=== PATIENT | female | born 1960 | race Two or more races ===

== ENCOUNTER 2024-11-28 10:36 | Inpatient (IN) | payer MEDICAID ==
[2024-11-28] MEDS ORDERED: ATOR10TA PO (11:28)
[2024-11-28] MEDS ORDERED: ALBU90AE IH (11:28)
[2024-11-28] MEDS ORDERED: BUDE10.26 IH (11:28)
[2024-11-28] MEDS ORDERED: RISP-31 PO (11:28)
[2024-11-28] MEDS ORDERED: IPRA3AMP24 NEB (11:28)
[2024-11-28] MEDS ORDERED: PRAM0.259 PO (11:28)
[2024-11-28] MEDS ORDERED: FURO20TA5 PO (11:28)
[2024-11-28] MEDS ORDERED: SEMA14TA2 PO (11:28)
[2024-11-28] MEDS ORDERED: RIVA20TA PO (11:28)
[2024-11-28] MEDS ORDERED: BENZ-247 PO (11:28)
[2024-11-28] MEDS ORDERED: RISP3TAB77 PO (11:28)
[2024-11-28] MEDS ORDERED: DIVA-85 PO (11:28)
[2024-11-28 11:30] VITALS: BP 122/75; PULSE 88; RESP 18; TEMP 97.8; O2SAT 97
[2024-11-28 12:36] LABS: GLUCOMETER DEV NAME(LOC) POC.BV; POC SARS-COV2 AG, FIA NEGATIVE (NEGATIVE)
[2024-11-29 08:26] LABS: BASOPHILS % (AUTO) 0.5 % (0.0-2.0); EOSINOPHILS % (AUTO) 0.5 % (1.0-6.0); HEMATOCRIT 38.5 % (36-46); HEMOGLOBIN 12.8 g/dL (12.0-16.0); LYMPHOCYTES # (AUTO) 2.3 K/uL (1.0-4.8); LYMPHOCYTES % (AUTO) 27.6 % (22.0-44.0); MEAN CORPUSCULAR HEMOGLOBIN 25.5 pg (26.0-34.0); MEAN CORPUSCULAR HGB CONC 33.4 G/dL (31.0-37.0); MEAN CORPUSCULAR VOLUME 76 fL (80-100); MONOCYTES # (AUTO) 0.7 K/uL (0.1-1.0); NEUTROPHILS # (AUTO) 5.2 K/uL (1.8-7.7); NEUTROPHILS % (AUTO) 63.4 % (40.0-70.0); PLATELET COUNT (AUTO) 212 K/uL (150-450); RED BLOOD CELL COUNT(AUTO) 5.04 MIL/uL (4.00-5.20); RED CELL DISTRIBUTION WIDTH 16.4 % (11.5-14.5); WHITE BLOOD COUNT (AUTO) 8.2 K/uL (4.5-11.0)
[2024-11-29 08:43] LABS: HEMOGLOBIN A1C 5.8 % (3.8-5.6)
[2024-11-29 09:04] VITALS: BP 132/81; PULSE 89; RESP 18; TEMP 98.2; O2SAT 95
[2024-11-29] MEDS: LORazepam 2 MG TABLET PO PRN (09:16)
[2024-11-29 09:21] LABS: RBC MORPHOLOGY COMMENT ABNORMAL RBC MORPH
[2024-11-29 09:26] LABS: ALANINE AMINOTRANSFERASE 18 U/L (12-78); ALBUMIN 3.4 g/dL (3.4-5.0); ALKALINE PHOSPHATASE 91 U/L (46-116); ANION GAP 7 mmol/L (8-16); ASPARTATE AMINOTRANSFERASE 25 U/L (15-37); BILIRUBIN,TOTAL 0.5 mg/dL (0.1-1.0); CALCIUM, TOTAL 9.4 mg/dL (8.8-10.5); CARBON DIOXIDE 32 mmol/L (22-29); CHLORIDE 102 mmol/L (98-107); CHOL/HDL RATIO 2.4 (3.9-5.7); CHOLESTEROL 150 mg/dL (131-200); FREE T4 (FREE THYROXINE) 1.34 ng/dL (0.76-1.46); GLOMERULAR FILTR. RATE CALC > 60 mL/min (>60); GLUCOSE,RANDOM 128 mg/dL (70-110); HDL CHOLESTEROL 62 mg/dL (40-60); LDL CHOL (CALC.) 70 mg/dL (0-130); POTASSIUM 3.8 mmol/L (3.5-5.1); SODIUM SERUM 141 mmol/L (136-145); T4 (THYROXINE) 12.9 mcg/dL (4.7-13.3); THYROID STIMULATING HORMONE 2.23 uIU/mL (0.36-3.74); TOTAL PROTEIN, SERUM 7.5 g/dL (6.4-8.2); TRIGLYCERIDES 91 mg/dL (15-150); UREA NITROGEN, BLOOD 11 mg/dL (7-18)
[2024-11-29] MEDS: HALOPERIDOL 5 MG TABLET PO PRN (09:28)
[2024-11-29] MEDS: RisperiDONE 1 MG TABLET PO SCH (17:18)
[2024-11-29] MEDS: DIVALPROEX SODIUM 500 MG DR TABLET PO SCH (17:18)
[2024-11-29] MEDS ORDERED: ACETAMINOPHEN 325 MG TABLET PO PRN (19:30)
[2024-11-29] MEDS ORDERED: OMEPRAZOLE 20 MG CAPSULE PO PRN (19:30)
[2024-11-29] MEDS ORDERED: PETROLATUM,WHITE 28 GM JELLY TP PRN (19:30)
[2024-11-29] MEDS ORDERED: ONDANSETRON 4 MG TABLET PO PRN (19:30)
[2024-11-29] MEDS ORDERED: DOCUSATE SODIUM 100 MG CAPSULE PO PRN (19:30)
[2024-11-29] MEDS ORDERED: MAG HYDROX/ALUMINUM HYD/SIMETH ES 30 ML SUSPENSION UDCUP PO PRN (19:30)
[2024-11-29] MEDS ORDERED: BACITRACIN 28 GM OINTMENT TP PRN (19:30)
[2024-11-29] MEDS ORDERED: ALBUTEROL SULFATE HFA 90 MCG/PUFF 8 GM INHALER IH PRN (19:30)
[2024-11-29] MEDS ORDERED: CloNIDine HCL 0.1 MG TABLET PO PRN (19:30)
[2024-11-29 20:19] VITALS: RESP 18
[2024-11-29] MEDS: ATORVASTATIN CALCIUM 10 MG TABLET PO SCH (20:58)
[2024-11-29] MEDS: PRAMIPEXOLE DI-HCL 0.25 MG TABLET PO SCH (20:58)
[2024-11-29] MEDS: ZOLPIDEM TARTRATE 10 MG TABLET PO PRN (22:00)
[2024-11-30] MEDS ORDERED: INFLUENZA VIRUS VACCINE TVS (6MO+) 2024-25/PF 45 MCG/0.5 ML SYRINGE IM. ONE (06:00)
[2024-11-30] MEDS: BUDESONIDE/FORMOTEROL FUMARATE 160-4.5 MCG/PUFF 10.2 GM INHALER IH SCH (09:00)
[2024-11-30] MEDS: FUROSEMIDE 20 MG TABLET PO SCH (09:42)
[2024-11-30 16:02] VITALS: BP 125/88; PULSE 99; RESP 19; TEMP 98.8; O2SAT 99
[2024-11-30] MEDS: RIVAROXABAN 20 MG TABLET PO SCH (17:30)
[2024-11-30 21:17] VITALS: BP 143/75; PULSE 86; RESP 18; TEMP 98.1
[2024-12-01 10:07] VITALS: BP 132/60; PULSE 77; RESP 17; TEMP 98.2
[2024-12-01] MEDS: BENZOCAINE/MENTHOL LOZENGE PO PRN (17:50)
[2024-12-01 21:30] VITALS: RESP 18
[2024-12-02 09:09] VITALS: BP 157/97; PULSE 74; RESP 18; TEMP 97.5; O2SAT 96
[2024-12-02 09:37] VITALS: BP 157/97; PULSE 74; RESP 18; TEMP 97.5; O2SAT 96
[2024-12-02] MEDS: IBUPROFEN 600 MG TABLET PO PRN (09:37)
[2024-12-02 10:37] VITALS: BP 132/77; PULSE 71; RESP 17; TEMP 98
[2024-12-02 21:12] VITALS: BP 149/70; PULSE 97; RESP 18; TEMP 97.8; O2SAT 97
[2024-12-03 09:52] VITALS: BP 164/84; PULSE 96; RESP 18; TEMP 98.2; O2SAT 96
[2024-12-03 21:02] VITALS: BP 149/74; PULSE 103; RESP 18; TEMP 97.7; O2SAT 96
[2024-12-04 10:33] VITALS: BP 144/87; PULSE 82; RESP 18; TEMP 97.6; O2SAT 95
[2024-12-04] MEDS: CHLORHEXIDINE GLUCONATE 0.12% 15 ML UDCUP ORAL RINSE PO SCH (13:02)
[2024-12-04] MEDS: BENZOCAINE 10% 7 GM GEL TP PRN (13:07)
[2024-12-04 20:51] VITALS: BP 141/77; PULSE 97; RESP 18; TEMP 98.7; O2SAT 95
[2024-12-05 01:32] LABS: APPEARANCE,URINE CLEAR (CLEAR); BILIRUBIN,URINE NEGATIVE (NEGATIVE); COLOR,URINE COLORLESS (YELLOW); GLUCOSE, URINE (UA) NEGATIVE (NEGATIVE); KETONES,URINE NEGATIVE (NEGATIVE); LEUKOCYTE ESTERASE ,URINE NEGATIVE (NEGATIVE); NITRATE,URINE NEGATIVE (NEGATIVE); OCCULT BLOOD,URINE NEGATIVE (NEGATIVE); PROTEIN,URINE NEGATIVE (NEGATIVE); UROBILINOGEN,URINE <=1.0 mg/dL (<=1.0)
[2024-12-05 01:42] LABS: ALCOHOL, URINE DRUG SCREEN NEGATIVE (NEGATIVE); AMPHET/METH SCREEN,URINE NEGATIVE (NEGATIVE); BARBITURATE SCREEN, URINE NEGATIVE (NEGATIVE); BENZODIAZEPINES SCREEN,URINE NEGATIVE (NEGATIVE); CANNABINOID SCREEN,URINE NEGATIVE (NEGATIVE); COCAINE SCREEN,URINE NEGATIVE (NEGATIVE); METHADONE SCREEN, URINE NEGATIVE (NEGATIVE); OPIATE SCREEN,URINE NEGATIVE (NEGATIVE); PHENCYCLIDINE SCREEN,URINE NEGATIVE (NEGATIVE)
[2024-12-05 10:22] VITALS: BP 112/63; PULSE 86; RESP 18; TEMP 97.8; O2SAT 98
[2024-12-05 20:25] VITALS: BP 120/71; PULSE 98; RESP 18; TEMP 97.8; O2SAT 98
[2024-12-06 09:06] VITALS: BP 166/94; PULSE 98; RESP 17; TEMP 98.5; O2SAT 95
[2024-12-06 23:17] VITALS: RESP 18
[2024-12-07 10:59] VITALS: BP 133/84; PULSE 98; RESP 18; TEMP 97.9; O2SAT 96
[2024-12-07 21:58] VITALS: RESP 18
[2024-12-08 12:05] VITALS: BP 137/79; PULSE 93; RESP 18; TEMP 98.9; O2SAT 96
[2024-12-08 21:02] VITALS: BP 140/96; PULSE 96; RESP 18; TEMP 97; O2SAT 96
[2024-12-09 08:30] VITALS: BP 170/110; PULSE 97; RESP 18; TEMP 98.1; O2SAT 97
[2024-12-09 10:40] VITALS: BP 113/60; PULSE 94; RESP 17
[2024-12-09 21:15] VITALS: BP 113/61; PULSE 112; RESP 18; TEMP 97.4; O2SAT 97
[2024-12-10 08:45] VITALS: BP 157/79; PULSE 96; RESP 18; TEMP 97.5; O2SAT 98
[2024-12-10 21:50] VITALS: BP 123/61; PULSE 95; RESP 18; TEMP 98.5; O2SAT 95
[2024-12-11 10:15] VITALS: BP 116/57; PULSE 85; RESP 18; TEMP 97.7; O2SAT 98
[2024-12-11 23:00] VITALS: RESP 18
[2024-12-12 08:10] VITALS: BP 107/66; PULSE 79; RESP 18; TEMP 98; O2SAT 96
[2024-12-12] MEDS: MAGNESIUM HYDROXIDE SUSPENSION 30 ML UDCUP PO PRN (11:32)
[2024-12-12 23:31] VITALS: RESP 18
[2024-12-13] MEDS: LOPERAMIDE HCL 2 MG CAPSULE PO PRN (00:48)
[2024-12-13 08:53] VITALS: BP 118/58; PULSE 96; RESP 18; TEMP 97.8; O2SAT 98
[2024-12-14 07:06] LABS: HIV 1-2 SCREEN 4TH GEN W/RFLX Non Reactive (Non Reactive)
== END 2024-12-13 19:12 | disposition home or self-care (01) | DRG 750 ==
LOC: 3EC 22:14
PROVIDERS: ADMIT Psychiatry & Neurology Psychiatry; ATTEND Psychiatry & Neurology Psychiatry
PROC: GZ52ZZZ Individual Psychotherapy, Cognitive (ICD-10-PCS; principal; 2024-12-03)
DX: F20.9 Schizophrenia, unspecified (principal); R45.851 Suicidal ideations; F31.9 Bipolar disorder, unspecified; F41.9 Anxiety disorder, unspecified; Z20.822 Contact with and (suspected) exposure to COVID-19; F84.0 Autistic disorder; G47.00 Insomnia, unspecified; I10 Essential (primary) hypertension; K21.9 Gastro-esophageal reflux disease without esophagitis; J44.9 Chronic obstructive pulmonary disease, unspecified; K59.00 Constipation, unspecified; Z79.01 Long term (current) use of anticoagulants; Z79.899 Other long term (current) drug therapy
CPT/HCPCS: 80053; 80061; 80164; 80307; 81003; 83036; 84436; 84439; 84443; 85025; 86592; 87389; 87491; 87591

== ENCOUNTER 2024-11-28 13:20 | Emergency (ER) | payer MEDICAID, OTHER ==
[~2024-11-28] VITALS: Ht 170.2 cm; Wt 115.5 kg
[~2024-11-28 13:20] MED LIST: ALBU90AE IH; ATOR10TA PO; BENZ-247 PO; BUDE10.26 IH; DIVA-85 PO; FURO20TA5 PO; IPRA3AMP24 NEB; PRAM0.259 PO; RISP-31 PO; RISP3TAB77 PO; RIVA20TA PO; SEMA14TA2 PO
[2024-11-28 15:02] VITALS: TEMP 97.8
[2024-11-28 15:28] LABS: BASOPHILS % (AUTO) 0.4 % (0.0-2.0); EOSINOPHILS % (AUTO) 0.4 % (1.0-6.0); HEMATOCRIT 37.7 % (36-46); HEMOGLOBIN 12.3 g/dL (12.0-16.0); LYMPHOCYTES # (AUTO) 2.5 K/uL (1.0-4.8); LYMPHOCYTES % (AUTO) 33.1 % (22.0-44.0); MEAN CORPUSCULAR HEMOGLOBIN 24.9 pg (26.0-34.0); MEAN CORPUSCULAR HGB CONC 32.6 G/dL (31.0-37.0); MEAN CORPUSCULAR VOLUME 77 fL (80-100); MONOCYTES # (AUTO) 0.6 K/uL (0.1-1.0); MONOCYTES % (AUTO) 7.6 % (2.0-9.0); NEUTROPHILS # (AUTO) 4.4 K/uL (1.8-7.7); NEUTROPHILS % (AUTO) 58.5 % (40.0-70.0); PLATELET COUNT (AUTO) 214 K/uL (150-450); RED BLOOD CELL COUNT(AUTO) 4.93 MIL/uL (4.00-5.20); RED CELL DISTRIBUTION WIDTH 16.6 % (11.5-14.5); WHITE BLOOD COUNT (AUTO) 7.5 K/uL (4.5-11.0)
[2024-11-28 15:32] LABS: ANION GAP 6 mmol/L (8-16); CALCIUM, TOTAL 9.2 mg/dL (8.8-10.5); CARBON DIOXIDE 32 mmol/L (22-29); CHLORIDE 102 mmol/L (98-107); CREATININE 0.71 mg/dL (0.60-1.30); GLOMERULAR FILTR. RATE CALC > 60 mL/min (>60); GLUCOSE,RANDOM 103 mg/dL (70-110); SODIUM SERUM 140 mmol/L (136-145); UREA NITROGEN, BLOOD 9 mg/dL (7-18)
[2024-11-28 15:45] LABS: ALCOHOL, BLOOD (SERUM) < 3 mg/dL (0-10)
[2024-11-28 17:09] LABS: COVID AG,FIA SOURCE NASAL SWAB
[2024-11-28 17:39] LABS: SARS-COV2 (COVID) ANTIGEN,FIA Negative (Negative)
[2024-11-28 19:03] VITALS: BP 128/62; PULSE 76; RESP 16; O2SAT 98
== END 2024-11-28 21:04 | disposition home or self-care (01) ==
LOC: EMS 13:24
DX: F31.9 Bipolar disorder, unspecified (principal); J44.9 Chronic obstructive pulmonary disease, unspecified; Z79.51 Long term (current) use of inhaled steroids; Z79.899 Other long term (current) drug therapy; Z20.822 Contact with and (suspected) exposure to COVID-19
CPT/HCPCS: 99285; 87426; 80048; 85025; 36415; G0480

== ENCOUNTER 2025-09-17 08:33 | Day surgery (SDC) | payer OTHER ==
[~2025-09-17] VITALS: Ht 160 cm; Wt 95.5 kg
[~2025-09-17 08:33] MED LIST changes: +ALBU18HF12 IH; -ALBU90AE IH; +BACL10TA PO; +CHOL25TA4 PO; +DOCU50LI40 PO; +HALO5TAB23 PO; +IBUP-45 PO; -IPRA3AMP24 NEB; +OLAN2.5T78 PO; +OXCA300T70 PO; +PROP40TA7 PO; +QUET100T PO; +SODIUM CHLORIDE 0.9% 1,000 ML ONE
[2025-09-17] MEDS: SODIUM CHLORIDE 0.9% 1,000 ML IV ONE (10:49)
== END 2025-09-17 12:50 | disposition home or self-care (01) ==
LOC: SURGERY 08:33
PROVIDERS: ATTEND Internal Medicine
DX: Z12.11 Encounter for screening for malignant neoplasm of colon (principal); D12.2 Benign neoplasm of ascending colon; K63.5 Polyp of colon; K64.8 Other hemorrhoids; F31.9 Bipolar disorder, unspecified; Z86.718 Personal history of other venous thrombosis and embolism; Z79.01 Long term (current) use of anticoagulants; Z79.1 Long term (current) use of non-steroidal anti-inflammatories (NSAID); Z79.899 Other long term (current) drug therapy; Z98.890 Other specified postprocedural states
CPT/HCPCS: 45385; 88305; C1769; J7030